=== PATIENT | female | born 1955 | race Caucasian/White ===

== ENCOUNTER → 2017-11-12 | Outpatient (CLI) | payer BC ==
[~2017-11-12] MED LIST: ASPI1CHW12 PO; B-COTAB18 PO; CALC600T9 PO; GLUCTAB7 PO; LSN/10125 PO; MULT-506 PO; PRLSR20 PO; RANI300T2 PO; SIMV40TA2 PO
--- NOTE | 2017-11-12 09:50 | DIAGNOSTIC IMAGING REPORT ---
BILATERAL KNEES 3 VIEWS EACH CLINICAL HISTORY: DJD OF BOTH KNEES. Bilateral knee pain. COMPARISON STUDY: Bilateral knees 08/13/2016. FINDINGS: No fracture or dislocation within the right or left knee. No knee effusions. Soft tissues are unremarkable. Mild cartilage space narrowing within the left patellofemoral joint there is also mild space narrowing within the lateral compartment of the right knee. Mild tricompartmental marginal osteophytes. IMPRESSION: Mild osteoarthritis within the knees as described above. No fractures. Electronically signed by: Des Iglesias M.D. 11/12/2017 9:49 AM Dictated Date/Time: 11/12/2017 9:30 AM
== END | disposition home or self-care (01) ==
LOC: C.RDSM 13:32
PROVIDERS: ATTEND Physician Assistant
DX: M17.0 Bilateral primary osteoarthritis of knee (principal)